=== PATIENT | female | born 1995 | race African-American/Black ===

== ENCOUNTER 2016-12-31 19:16 | Emergency (ER) | payer OTHER ==
[~2016-12-31] VITALS: Ht 162.6 cm; Wt 52.1 kg
[2016-12-31 19:21] VITALS: TEMP 36.7; Ht 162.6 cm; Wt 52.1 kg
[2016-12-31] MEDS ORDERED: SODIUM CHLORIDE 0.9% 1000ML 2,000 ML IV STA (19:40)
[2016-12-31] MEDS ORDERED: PROCHLORPERAZINE 5 MG/ML 2 ML VIAL IV STA (19:49)
[2016-12-31] MEDS ORDERED: DiphenhydrAMINE HCL 50 MG/ML VIAL IV STA (19:49)
[2016-12-31] MEDS ORDERED: KETOROLAC TROMETHAMINE 30 MG/ML VIAL IV STA (19:49)
[2016-12-31 19:57] LABS: BASO % 0.1 %; BASO ABS # 0.01 K/uL (0-0.2); COMPLETE YES; EOS % 0.1 %; HEMATOCRIT 37.8 % (37-47); IG% 0.2 %; LYMPH ABS # 0.76 K/uL (1.2-3.4); MEAN CELL VOLUME 84.4 fL (80-100); MEAN CORPUSCULAR HEMOGLOBIN 28.6 pg (25-34); MEAN CORPUSCULAR HGB CONC 33.9 g/dl (32-36); MEAN PLATELET VOLUME 10.5 fL (7.4-10.4); MONO % 1.1 %; NEUT % 91.5 %; PLATELET COUNT 237 K/uL (130-400); RED BLOOD COUNT 4.48 M/uL (4.2-5.4); WHITE BLOOD COUNT 10.91 K/uL (4.8-10.8)
--- NOTE | 2016-12-31 20:03 | EMERGENCY ROOM VISIT NOTE ---
History Report prepared by Valentina: Karen Romano Under the Supervision of: Dr. Anuj Richard M.D. First contact with patient: 19:24 Chief Complaint: VOMITING Stated Complaint: VOMITING,HEADACHE Nursing Triage Summary: pt reports started at noon today with NV and abdominal cramping , denies urinary sx pt reports also starting this AM when " I awakened my ears hurt and I have a GRANGER " History of Present Illness The patient is a 21 year old female who presents to the Emergency Room with complaints of persistent headache starting this morning. She woke up this morning with a headache and nausea. She has had several episodes of vomiting since. She has been vomiting when she tries to eat. She has also vomited without eating. Her headache is present on the left side of her head. She currently rates her discomfort as a 7/10 in severity. The lights bother her. She feels dizzy and lightheaded when standing up. She has had syncope with headaches and vomiting in the past. She denies any LOC, weakness, urinary symptoms, diarrhea, fever, sore throat, or abdominal pain. She does feel thirsty. She notes that she has had an ear ache for the past week. She has had headaches in the past. She has not been diagnosed with migraines. She denies any history of heart problems, kidney problems, spleen problems, asthma, or diabetes. She denies any chance of . Her last menstrual period was last week. Source of History: patient Onset: this morning Position: head Symptom Intensity: 7/10 Quality: ache Timing: other (persistent) Associated Symptoms: + nausea, + vomiting, No LOC, No fevers, No sorethroat , No abdominal pain, No diarrhea, No urinary symptoms, No weakness Note: Pt reports light sensitivity, dizziness, lightheadedness, ear ache. Review of Systems See HPI for pertinent positives & negatives. A total of 10 systems reviewed and were otherwise negative. Past Medical & Surgical Medical Problems: (1) Headache Family History No pertinent family history stated. Social History Smoking Status: Never Smoker Marital Status: single Occupation Status: unemployed Current/Historical Medications No Active Prescriptions or Reported Meds Allergies Coded Allergies: Cefuroxime (Verified Allergy, Unknown, Unknown, 12/31/16) Physical Exam Vital Signs Date Time Temp Pulse Resp B/P (MAP) Pulse Ox O2 Delivery O2 Flow Rate FiO2 12/31/16 21:03 107 18 88/57 100 Room Air 12/31/16 19:21 36.7 109 20 108/61 100 Room Air Physical Exam GENERAL: Patient is in no acute distress. HEENT: No acute trauma, normocephalic atraumatic, mucous membranes moist, no nasal congestion, no scleral icterus, no throat erythema or exudate, TMs clear bilaterally, pupils equal and reactive to light. NECK: No stridor, no adenopathy, no meningismus, trachea is midline, flexes chin to chest without pain or difficulty. LUNGS: Clear to auscultation bilaterally, no wheeze, no rhonchi, breath sounds equal. HEART: Without murmurs gallops or rubs, regular rate and rhythm. ABDOMEN: Soft, nontender, bowel sounds positive, no hernias, no peritonitis. EXTREMITIES: No cyanosis or edema, full range of motion of all the joints without pain or difficulty, no signs for acute trauma. No cerebellar deficits NEUROLOGIC: Oriented x 3, no acute motor or sensory deficits, no focal weakness , no cerebellar deficits. SKIN: No rash, no jaundice, no diaphoresis. Medical Decision & Procedures Laboratory Results 12/31/16 19:40 Red Blood Count 4.48, Mean Corpuscular Volume 84.4, Mean Corpuscular Hemoglobin 28.6, Mean Corpuscular Hemoglobin Concent 33.9, Mean Platelet Volume 10.5, Neutrophils (%) (Auto) 91.5, Lymphocytes (%) (Auto) 7.0, Monocytes (%) (Auto) 1.1, Eosinophils (%) (Auto) 0.1, Basophils (%) (Auto) 0.1, Neutrophils # (Auto) 9.99, Lymphocytes # (Auto) 0.76, Monocytes # (Auto) 0.12, Eosinophils # (Auto) 0.01, Basophils # (Auto) 0.01 12/31/16 19:40 Test 12/31/16 19:40 12/31/16 19:48 White Blood Count 10.91 K/uL (4.8-10.8) Red Blood Count 4.48 M/uL (4.2-5.4) Hemoglobin 12.8 g/dL (12.0-16.0) Hematocrit 37.8 % (37-47) Mean Corpuscular Volume 84.4 fL (80-100) Mean Corpuscular Hemoglobin 28.6 pg (25-34) Mean Corpuscular Hemoglobin Concent 33.9 g/dl (32-36) Platelet Count 237 K/uL (130-400) Mean Platelet Volume 10.5 fL (7.4-10.4) Neutrophils (%) (Auto) 91.5 % Lymphocytes (%) (Auto) 7.0 % Monocytes (%) (Auto) 1.1 % Eosinophils (%) (Auto) 0.1 % Basophils (%) (Auto) 0.1 % Neutrophils # (Auto) 9.99 K/uL (1.4-6.5) Lymphocytes # (Auto) 0.76 K/uL (1.2-3.4) Monocytes # (Auto) 0.12 K/uL (0.11-0.59) Eosinophils # (Auto) 0.01 K/uL (0-0.5) Basophils # (Auto) 0.01 K/uL (0-0.2) RDW Standard Deviation 39.9 fL (36.4-46.3) RDW Coefficient of Variation 13.1 % (11.5-14.5) Immature Granulocyte % (Auto) 0.2 % Immature Granulocyte # (Auto) 0.02 K/uL (0.00-0.02) Anion Gap 9.0 mmol/L (3-11) Est Creatinine Clear Calc Drug Dose 108.3 ml/min Estimated GFR () 144.6 Estimated GFR (Non- 124.8 BUN/Creatinine Ratio 15.2 (10-20) Calcium Level 9.0 mg/dl (8.5-10.1) Total Bilirubin 0.4 mg/dl (0.2-1) Aspartate Amino Transf (AST/SGOT) 12 U/L (15-37) Alanine Aminotransferase (ALT/SGPT) 19 U/L (12-78) Alkaline Phosphatase 65 U/L (45-117) Total Protein 7.7 gm/dl (6.4-8.2) Albumin 4.1 gm/dl (3.4-5.0) Globulin 3.6 gm/dl (2.5-4.0) Albumin/Globulin Ratio 1.1 (0.9-2) Human Chorionic Gonadotropin, Qual NEG (NEG) Urine Color YELLOW Urine Appearance CLEAR (CLEAR) Urine pH 6.5 (4.5-7.5) Urine Specific [place] 1.031 (1.000-1.030) Urine Protein TRACE (NEG) Urine Glucose (UA) NEG (NEG) Urine Ketones 3+ (NEG) Urine Occult Blood NEG (NEG) Urine Nitrite NEG (NEG) Urine Bilirubin NEG (NEG) Urine Urobilinogen NEG (NEG) Urine Leukocyte Esterase NEG (NEG) Urine WBC (Auto) 1-5 /hpf (0-5) Urine RBC (Auto) 0-4 /hpf (0-4) Urine Hyaline Casts (Auto) 10-30 /lpf (0-5) Urine Epithelial Cells (Auto) >30 /lpf (0-5) Urine Bacteria (Auto) 1+ (NEG) Urine Renal Epithelial Cells /lpf (0-5) Urine Mucus PRESENT (NONE PRSENT) Laboratory results reviewed by me. Medications Administered Medications (Trade) Dose Ordered Sig/Alysia Route Start Time Stop Time Status Last Admin Dose Admin Sodium Chloride 2,000 ml @ 999 mls/hr Q2H1M STAT IV 12/31/16 19:40 12/31/16 21:40 12/31/16 19:52 999 MLS/HR Prochlorperazine Edisylate (Compazine Inj) 10 mg NOW STAT IV 12/31/16 19:49 12/31/16 19:51 DC 12/31/16 19:55 10 MG Diphenhydramine HCl (Benadryl Inj) 50 mg NOW STAT IV 12/31/16 19:49 12/31/16 19:51 DC 12/31/16 19:55 50 MG Ketorolac Tromethamine (Toradol Inj) 30 mg NOW STAT IV 12/31/16 19:49 12/31/16 19:51 DC 12/31/16 19:55 30 MG ED Course 1923: The student evaluated the patient at this time. We discussed findings, differentials, and treatment plan. 1939: NSS 2000 ml @ 999 mls/hr IV. 1948: Toradol Inj 30 mg IV, Benadryl Inj 50 mg IV, Compazine Inj 10 mg IV. 2111: I reevaluated the patient. She is doing well and her symptoms have resolved. I discussed results and discharge instructions: she verbalized understanding and agreement. The patient is ready for discharge. 2114: Ondansetron HCl 1 homepack PO. Medical Decision Differential diagnoses considered include dehydration, viral illness, migraine headache, pharyngitis, otitis media, , UTI, meningitis. There is no concerning leukocytosis. No anemia. No significant electrolyte abnormality, kidney failure or hepatitis. testing is negative. Urinalysis shows dehydration, no infection. On exam, the patient did not have meningismus. She was not febrile or toxic. She has a normal and nonfocal neurologic exam. The patient has had headaches like this in the past, she felt they were migraine headaches. She did receive IV Compazine, IV Benadryl and IV Toradol. She was given IV saline. She is resting comfortably and now asymptomatic. The patient is being discharged home. She was encouraged to rest and to stay hydrated. I did provide a few Zofran tablets for persistent nausea. If things are worsening, she should return. Her headache does sound migrainous. Impression Primary Impression: Headache Additional Impressions: Dehydration Vomiting Scribe Attestation The scribe's documentation has been prepared under my direction and personally reviewed by me in its entirety. I confirm that the note above accurately reflects all work, treatment, procedures, and medical decision making performed by me. Departure Information Dispostion Home / Self-Care Prescriptions No Active Prescriptions or Reported Meds Referrals No Doctor, Assigned (PCP) Forms HOME CARE DOCUMENTATION FORM, IMPORTANT VISIT INFORMATION Patient Instructions My [facility] Additional Instructions zofran 1 tab as needed every 4 hours for nausea fluids rest return if worsening or have fever or persistent symptoms Problem Qualifiers
[2016-12-31 20:12] LABS: BUN/CREATININE RATIO 15.2 (10-20); CREATININE 0.67 mg/dl (0.60-1.20); POTASSIUM 3.9 mmol/L (3.5-5.1)
[2016-12-31 20:15] LABS: ALB/GLOB RATIO 1.1 (0.9-2)
[2016-12-31 20:21] LABS: PREG INTERNAL NEGATIVE QC NEG CLEAR BACKGROUND; PREG INTERNAL POSITIVE QC POS CONTROL LINE
[2016-12-31 20:22] LABS: URINE APPEARANCE CLEAR (CLEAR); URINE BILIRUBIN NEG (NEG); URINE COLOR YELLOW; URINE EPITHELIAL CELL AUTO >30 /lpf (0-5); URINE NITRITE NEG (NEG); URINE PH 6.5 (4.5-7.5); URINE SPECIFIC GRAVITY 1.031 (1.000-1.030); UROBILINOGEN NEG (NEG)
[2016-12-31 20:25] LABS: MANUAL MICROSCOPIC REQUIRED? NO; REVIEW REQ? YES
[2016-12-31 20:34] LABS: URINE MUCUS PRESENT (NONE PRSENT)
[2016-12-31 20:35] LABS: ZZUR CULT IF INDIC CLEAN CATCH YES
[2016-12-31] MEDS ORDERED: ONDANSETRON HOME PACK 4MG OD TAB PO ONE (21:15)
[2016-12-31 21:29] VITALS: BP 100/57; PULSE 102; O2SAT 100
== END 2016-12-31 21:30 | disposition home or self-care (01) ==
LOC: C.EDB 19:19
DX: R51 Headache (principal); E86.0 Dehydration; R11.10 Vomiting, unspecified; Z88.8 Allergy status to other drugs, medicaments and biological substances